=== PATIENT | male | born 1960 | race American Indian/Alaskan Native ===

== ENCOUNTER 2016-09-25 19:41 | Inpatient (IN) | payer MEDICAID ==
[2016-09-25 20:09] VITALS: O2SAT 100
--- NOTE | 2016-09-25 20:12 | C.PDOC ---
History Of Present Illness 56 year old male was brought to the ED as a transfer from [facility] in [place] where he was medically cleared to be admitted at [facility] by Dr. Velez for depression and suicidal ideations. Time Seen by Provider: 09/25/16 19:50 Chief Complaint (Nursing): Psychiatric Evaluation History Per: Patient History/Exam Limitations: no limitations Associated Symptoms: Depression, Suicidal Thoughts Recent travel outside of the [place]: No Additional History Per: Other ([facility] in [place]) Past Medical History Reviewed: Historical Data, Nursing Documentation, Vital Signs Vital Signs: Last Vital Signs Temp 98.1 F 09/25/16 20:01 Pulse 61 09/25/16 20:01 Resp 18 09/25/16 20:47 BP 151/94 H 09/25/16 20:01 Pulse Ox 100 09/25/16 20:14 - Medical History PMH: Anxiety, Bipolar Disorder, Depression - [facility] Procedures GROUP PSYCHOTHERAPY (05/13/16) INDIV PSYCHOTHERAPY FOR SUBSTANCE ABUSE TREATMENT, SUPPORT (05/13/16) INDIVIDUAL PSYCHOTHERAPY, SUPPORTIVE (05/13/16) MEDICATION MANAGEMENT (05/13/16) MEDS MGMT FOR SUBSTANCE ABUSE TREATMENT, OTH REPL MED (05/13/16) Family History: States: No Known Family Hx - Social History Hx Tobacco Use: No Hx Alcohol Use: No Hx Substance Use: Yes - Immunization History Hx Influenza Vaccination: Yes Hx Pneumococcal Vaccination: Yes Review Of Systems Constitutional: Negative for: Fever, Chills, Sweats Eyes: Negative for: Vision Change Cardiovascular: Negative for: Chest Pain, Palpitations Respiratory: Negative for: Cough, Shortness of Breath Gastrointestinal: Negative for: Nausea, Vomiting, Abdominal Pain, Diarrhea Psych: Positive for: Depression, Suicidal ideation Physical Exam - Physical Exam Appears: Non-toxic, No Acute Distress Skin: Warm, Dry Head: Atraumatic Eye(s): bilateral: Normal Inspection Oral Mucosa: Moist Neck: Normal ROM, Supple Chest: Symmetrical, No Deformity Cardiovascular: Rhythm Regular Respiratory: No Rales, No Rhonchi, No Stridor, No Wheezing Gastrointestinal/Abdominal: Soft, No Tenderness, No Distention, No Guarding, No Rebound Extremity: Normal ROM, No Tenderness Neurological/Psych: Oriented x3 ED Course And Treatment O2 Sat by Pulse Oximetry: 100 Disposition - Disposition Disposition: HOSPITALIZED Disposition Time: 20:52 Condition: STABLE - Clinical Impression Clinical Impression: Moderate major depression, single episode, Suicidal ideation - Scribe Statement The provider has reviewed the documentation as recorded by the Scribkane Hinton All medical record entries made by the Mariumibe were at my direction and personally dictated by me. I have reviewed the chart and agree that the record accurately reflects my personal performance of the history, physical exam, medical decision making, and the department course for this patient. I have also personally directed, reviewed, and agree with the discharge instructions and disposition.
--- NOTE | 2016-09-27 04:39 | PCM.PSYCH ---
Initial Psychiatric Evaluation - Initial Psychiatric Evaluation Legal Status: Capacity Chief Complaint (in patient's own words): I wanted to overdose Patient's Reaction to Hospitalization: I feel safe here in the hospital and i will not hurt myself while here. I contracted for safety History of Present Illness and Precipitating Events: Pt is a 56 year old homeless, single, unemployed male who suffers from bipolar disorder. Pt uses cocaine occasionally and used last last year. He drinks socially. He denies use of other substances. Pt states he started going to [facility] age 36. He has been many times at [facility] in [place] and before at [facility], He is usually admitted for depression, anxiety and suicidal ideation. He feels hopeless and helpless. He is anhedonic, has aenergy and amotivation. Pt was transferred from [facility]. Pt has no history. He has been arrested for loitering and shop lifting. Pt gas 5 children by different women. All the minor children are safe with their mothers. Both parents are . He has 2 brother and 1 sister. He is the youngest. There is no family history of substance abuse or mental illness, He graduated 12th grade. 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 He receives SSI. 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 Current Medications: Active Medications Generic Name Dose Route Start Last Admin Trade Name Freq PRN Reason Stop Dose Admin Clonazepam 0.5 mg 09/26/16 14:00 09/26/16 17:53 Klonopin PO 0.5 mg TID ALEXA Administration Escitalopram Oxalate 20 mg 09/27/16 10:00 Lexapro PO DAILY ALEXA Gabapentin 300 mg 09/26/16 10:00 09/26/16 17:53 Neurontin PO 300 mg TID ALEXA Administration Pneumococcal Polyvalent Vaccine 0.5 ml 09/28/16 10:00 Pneumovax 23 Vaccine IM 09/28/16 10:01 .ONCE ONE Trazodone HCl 100 mg 09/25/16 23:14 09/26/16 21:39 Desyrel PO 100 mg HS PRN Administration Insomnia Past Psychiatric History - Past Psychiatric History Prior Professional Help: SeeHPI Pertinent Medical Hx (Current Medical&Sleep Prob, Allergies): Allergies Allergy/AdvReac Type Severity Reaction Status Date / Time No Known Allergies Allergy Verified 05/13/16 01:15 Escitalopram [Lexapro] 20 mg PO DAILY 05/13/16 traZODone [trazodone Hydrochloride] 200 mg PO DAILY 05/13/16 Sertraline [Zoloft] 100 mg PO DAILY #30 tab 05/20/16 traZODone [Desyrel] 100 mg PO HS #30 tab 05/20/16 Review of Systems - Constitutional Constitutional: Malaise - EENT Eyes: UNREMARKABLE Ears: UNREMARKABLE Nose/Mouth/Throat: UNREMARKABLE - Cardiovascular Cardiovascular: UNREMARKABLE - Respiratory Respiratory: UNREMARKABLE - Gastrointestinal Gastrointestinal: UNREMARKABLE - Genitourinary Genitourinary: UNREMARKABLE - Reproductive: Male Reproductive:Male: UNREMARKABLE - Musculoskeletal Musculoskeletal: UNREMARKABLE - Integumentary Integumentary: UNREMARKABLE - Neurological Neurological: UNREMARKABLE - Psychiatric Psychiatric: Anhedonia, Anxiety, Behavioral Changes, Depression, Difficulty Concentrating, Hopelessness, Suicidal Ideation - Endocrine Endocrine: UNREMARKABLE - Hematologic/Lymphatic Hematologic: UNREMARKABLE Mental Status Examination - Personal Presentation Personal Presentation: Looks older than stated age - Affect Affect: Constricted - Motor Activity Motor Activity: Calm - Reliability in Providing Information Reliability in Providing Information: Good - Speech Speech: Organized, Relevant, Coherent - Mood Mood: Depressed, Anxious - Formal Thought Process Formal Thought Process: No Impairment - Obsessions/Compulsions Obsessions: No Compulsions: No - Cognitive Functions Orientation: Person, Place, Situation, Time Sensorium: Alert Attention/Concentration: Attentive Abstract Thinking: As evidence by literal perception of proverbs Judgement: Intact, as evidence by: Good judgement, Intact, as evidence by: Other Memory: Recent intact, as evidence by: Ability to recall events of the day, Remote intact, as evidenced by: Ability to recall historical events - Risk Risk: Suicidal - Strength & Assets Inventory Strength & Assets Inventory: Family support, Employment history - Limitations Limitations: Living alone DSM 5 DX - DSM 5 DSM 5 Diagnosis: Bipolar disorder MRE depressed severe without psychotic features- Lexappro Trazodone Klonopin group milieu and recreational therapy supportive psychotherapy - Recommended/Plan of Treatment Treatment Recommendations and Plan of Treatment: Bipolar disorder MRE depresssed severe without psychotic features Projected ELOS: 10 days Prognosis: fair Discharge Plan and Discharge Criteria: no longer suicidal - Smoking Cessation Smoking Cessation Initiated: No
--- NOTE | 2016-09-27 10:00 | PCM.PYCHPN ---
Psychiatric Progress Note - Psychiatric Progress Note Patient seen today, length of contact: 15 min Patient Chief Complaint: I am still feeling depressed. Problems Identified/Issues Discussed: Patient seen and evaluated, chart reviewed and discussed with the nurse. Patient remained isolated, confined and withdrawn. He reports depressed mood and feelings of hopelessness and helplessness. He also reports irritability, agitation and poor sleep. He is taking medication and denied any side effects. Supportive therapy and psychoeducation were given. Medication Change: No Medical Record Reviewed: Yes Mental Status Examination - Cognitive Function Orientation: Person, Place, Situation, Time Memory: Intact Attention: WNL Concentration: Poor Association: WNL Fund of Knowledge: Poor - Mood Mood: Depressed, Anxious - Affect Affect: Constricted - Speech Speech: Soft - Formal Thought Process Formal Thought Process: No Impairment - Suicidal Ideation Suicidal Ideation: No - Homicidal Ideation Homicidal Ideation: No Goal/Treatment Plan - Goal/Treatment Plan Need for Continued Stay: Discharge may exacerbated symptoms, Severe functional impairment Progress Toward Problem(s) and Goals/Treatment Plan: Bipolar disorder MRE depressed severe without psychotic features CBT group milieu and recreational therapy supportive psychotherapy Lexapro 20 ng Trazodone 50 mg PO QHS Klonopin 0.5 mg PO TID Gabapentin 300 mg PO TID - Smoking Cessation Smoking Cessation Initiated: No
[2016-09-28 08:11] VITALS: RESP 20
[2016-09-28] MEDS ORDERED: Pneumococcal 23-Valent Vaccine IM ONE (10:00)
--- NOTE | 2016-09-28 12:50 | PCM.PYCHPN ---
Psychiatric Progress Note - Psychiatric Progress Note Patient seen today, length of contact: 15 min Patient Chief Complaint: I am feeling lil better. Problems Identified/Issues Discussed: Patient seen and evaluated, chart reviewed and discussed with the nurse. as per staff patient has started coming out of his room and started attending groups and meetings. He still reports depressed mood and at times feelings of hopelessness and helplessness. However he remained calm and cooperative. He is taking medication and denied any side effects. Supportive therapy and psychoeducation were given. Medication Change: Yes (atarax) Medical Record Reviewed: Yes Mental Status Examination - Cognitive Function Orientation: Person, Place, Situation, Time Memory: Intact Attention: WNL Concentration: Poor Association: WNL Fund of Knowledge: Poor - Mood Mood: Depressed, Anxious - Affect Affect: Constricted - Speech Speech: Soft - Formal Thought Process Formal Thought Process: No Impairment - Suicidal Ideation Suicidal Ideation: No - Homicidal Ideation Homicidal Ideation: No Goal/Treatment Plan - Goal/Treatment Plan Need for Continued Stay: Discharge may exacerbated symptoms, Severe functional impairment Progress Toward Problem(s) and Goals/Treatment Plan: Bipolar disorder MRE depressed severe without psychotic features CBT group milieu and recreational therapy supportive psychotherapy Lexapro 20 ng Trazodone 50 mg PO QHS Klonopin 0.5 mg PO TID Gabapentin 300 mg PO TID Atarax 25 mg by mouth every 6 hours when necessary anxiety - Smoking Cessation Smoking Cessation Initiated: No
--- NOTE | 2016-09-29 14:34 | PCM.PYCHPN ---
Psychiatric Progress Note - Psychiatric Progress Note Patient seen today, length of contact: 15 min Patient Chief Complaint: I'm feeling much better' Problems Identified/Issues Discussed: Patient seen and evaluated, chart reviewed and discussed with the nurse. Patient reports improvement in his mood and reports improvement in his anxiety. He is trying to go to inpatient rehabilitation and he is calling up different programs. He is attending groups and meetings and remained calm and cooperative. He is taking medication and denied any side effects. Supportive therapy and psychoeducation were given. Medication Change: No Medical Record Reviewed: Yes Mental Status Examination - Cognitive Function Orientation: Person, Place, Situation, Time Memory: Intact Attention: WNL Concentration: WNL Association: WNL Fund of Knowledge: Poor - Mood Mood: Depressed, Anxious - Affect Affect: Constricted, Depressed - Speech Speech: Soft - Formal Thought Process Formal Thought Process: No Impairment - Suicidal Ideation Suicidal Ideation: No - Homicidal Ideation Homicidal Ideation: No Goal/Treatment Plan - Goal/Treatment Plan Need for Continued Stay: Discharge may exacerbated symptoms, Severe functional impairment Progress Toward Problem(s) and Goals/Treatment Plan: Bipolar disorder MRE depressed severe without psychotic features CBT group milieu and recreational therapy supportive psychotherapy Lexapro 20 ng Trazodone 50 mg PO QHS Klonopin 0.5 mg PO TID Gabapentin 300 mg PO TID - Smoking Cessation Smoking Cessation Initiated: No
[2016-09-30 09:30] VITALS: BP 123/79; PULSE 85; TEMP 97.4
--- NOTE | 2016-09-30 10:02 | PCM.PYCHDC ---
Mental Status Examination - Mental Status Examination Orientation: Person, Place, Situation, Time Memory: Intact Mood: Neutral Affect: Constricted Speech: Soft Attention: WNL Concentration: WNL Association: WNL Fund of Knowledge: WNL Formal Thought Process: No Impairment Description of patient's judgement and insight: good, fair Psychotic Thoughts and Behaviors: denies any AVH Suicidal Ideation: No Current Homicidal Ideation?: No Discharge Summary - Discharge Note Reason for Hospitalization: Pt is a 56 year old homeless, single, unemployed male who suffers from bipolar disorder. Pt uses cocaine occasionally and used last last year. He drinks socially. He denies use of other substances. Pt states he started going to [facility] age 36. He has been many times at [facility] in [place] and before at [facility], He is usually admitted for depression, anxiety and suicidal ideation. He feels hopeless and helpless. He is anhedonic, has aenergy and amotivation. Pt was transferred from [facility]. Pt has no history. He has been arrested for loitering and shop lifting. Pt gas 5 children by different women. All the minor children are safe with their mothers. Both parents are . He has 2 brother and 1 sister. He is the youngest. There is no family history of substance abuse or mental illness, He graduated 12th grade. 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 He receives SSI. 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 Consultations:: List each consultation separately and include: 1. Reason for request. 2. Findings. 3. Follow-up Summary of Hospital Course include:: 1. Description of specific treatment plan utilized for patients during their course of treatmen. 2. Summarize the time- course for resolution of acute symptoms and/or regressed behaviors. 3. Describe issues identified and worked on during hospitalization. 4. Describe medication utilized. 5. Describe medical problems identified and treated. 6. Reassessment of suicide risk Summary of Hospital Course: During the course of his stay, patient (pt) started progressively improving and he no longer remained irritable, depressed, and suicidal. His mood was improved and he started attending groups and meetings and started socializing. Patient denied any feelings of hopelessness, helplessness, and worthlessness, denied any problem with the sleep or appetite, denied suicidal ideation or homicidal ideation. Pt denied any auditory or visual hallucinations. Some changes were made in his current medications and patient was discharged on following medications. He tolerated these medications very well and denied any side effects. - Final Diagnosis (DSM 5) Condition upon Discharge: STABLE DSM 5: Bipolar disorder MRE depressed severe without psychotic features Disposition: HOME/ ROUTINE Follow-up Treatment Plan: Education: Pt was educated and counseled about the risks and benefits of taking and not taking medications. Pt was educated and counseled about the risks of drinking and abusing drugs. Pt was educated and counseled to go to the ER or call 911 if pt develop suicidal ideation or homicidal ideation, worsening of symptoms or severe side effects of the meds. Prescriptions/Medication Reconciliation: Escitalopram [Lexapro] 20 mg PO DAILY #30 tab traZODone [Desyrel] 100 mg PO HS PRN #30 tab PRN Reason: Insomnia - Smoking Cessation Smoking Cessation Medication prescribed: No - Antipsychotic Medications Pt discharged on 2 or more routine antipsychotic medications: No
== END 2016-09-30 13:00 | disposition home or self-care (01) | DRG 430 ==
LOC: C.ER 19:41 → C.5E 19:54
PROVIDERS: ADMIT Psychiatry & Neurology Psychiatry; ATTEND Psychiatry & Neurology Psychiatry
PROC: GZHZZZZ Group Psychotherapy (ICD-10-PCS; principal; 2016-09-25)
PROC: GZ58ZZZ Individual Psychotherapy, Cognitive-Behavioral (ICD-10-PCS; 2016-09-25)
PROC: GZ56ZZZ Individual Psychotherapy, Supportive (ICD-10-PCS; 2016-09-25)
DX: F31.4 Bipolar disorder, current episode depressed, severe, without psychotic features (principal); R45.851 Suicidal ideations; F41.9 Anxiety disorder, unspecified; Z59.0 Homelessness

== ENCOUNTER 2018-02-17 02:03 | Inpatient (IN) | payer MEDICAID ==
--- NOTE | 2018-02-17 02:24 | C.PDOC ---
History Of Present Illness Presents to the ED for medical clearance after being transferred from [facility]. The patient was accepted for transfer by Dr. Rae for major depression. Time Seen by Provider: 02/17/18 02:24 Chief Complaint (Nursing): Psychiatric Evaluation History Per: Patient History/Exam Limitations: no limitations Onset/Duration Of Symptoms: Hrs Current Symptoms Are (Timing): Still Present Suicide/Self Injury Attempted (Context): None Modifying Factor(s): None Associated Symptoms: Depression Recent travel outside of the [facility]: No Additional History Per: EMS Past Medical History Reviewed: Historical Data, Nursing Documentation, Vital Signs Vital Signs: Last Vital Signs Temp 98 F 02/17/18 02:09 Pulse 58 L 02/17/18 02:09 Resp 20 02/17/18 02:09 BP 150/73 02/17/18 02:09 Pulse Ox 100 02/17/18 02:09 - Medical History PMH: Anxiety, Bipolar Disorder, Depression Denies: Chronic Kidney Disease Other Surgeries: Cerebral and subdural hematoma - [facility] Procedures GROUP PSYCHOTHERAPY (09/25/16) INDIV PSYCHOTHERAPY FOR SUBSTANCE ABUSE TREATMENT, SUPPORT (05/13/16) INDIVIDUAL PSYCHOTHERAPY, COGNITIVE-BEHAVIORAL (09/25/16) INDIVIDUAL PSYCHOTHERAPY, SUPPORTIVE (09/25/16) MEDICATION MANAGEMENT (05/13/16) MEDS MGMT FOR SUBSTANCE ABUSE TREATMENT, OTH REPL MED (05/13/16) Family History: States: Unknown Family Hx - Social History Hx Tobacco Use: No Hx Alcohol Use: Yes Hx Substance Use: Yes - Immunization History Hx Influenza Vaccination: Yes Hx Pneumococcal Vaccination: Yes Review Of Systems Constitutional: Negative for: Fever, Chills Neurological: Negative for: Altered Mental Status Psych: Positive for: Depression Physical Exam - Physical Exam Appears: Non-toxic, No Acute Distress Skin: Warm, Dry Head: Normacephalic Eye(s): bilateral: Normal Inspection Oral Mucosa: Moist Neck: Trachea Midline, Supple Chest: Symmetrical Cardiovascular: Rhythm Regular Respiratory: No Rales, No Rhonchi, No Wheezing Gastrointestinal/Abdominal: Soft, No Tenderness, No Distention Extremity: Bilateral: Normal Color And Temperature Pulses: Left Dorsalis Pedis: Normal, Right Dorsalis Pedis: Normal Neurological/Psych: Oriented x3 Gait: Steady ED Course And Treatment O2 Sat by Pulse Oximetry: 100 (RA) Pulse Ox Interpretation: Normal Progress Note: Accepted for transfer by Dr. Rae Disposition Discussed With .: Kevin Rae Comment: accetped the pt on his service and took over the care at 2:26 AM Doctor Will See Patient In The: Hospital Counseled Patient/Family Regarding: Studies Performed, Diagnosis - Disposition Disposition: HOSPITALIZED Disposition Time: 02:24 Condition: FAIR Forms: [facility] (Cook Islander) - POA Present On Arrival: None - Clinical Impression Clinical Impression: Major depression - PA / SENIOR CONTROLLER / Resident Statement MD/DO has reviewed & agrees with the documentation as recorded. - Scribe Statement The provider has reviewed the documentation as recorded by the Scribe (Cira Grubbs) Provider Attestation: All medical record entries made by the Scribe were at my direction and personally dictated by me. I have reviewed the chart and agree that the record accurately reflects my personal performance of the history, physical exam, medical decision making, and the department course for this patient. I have also personally directed, reviewed, and agree with the discharge instructions and disposition. Decision To Admit - Pt Status Changed To: Hospital Disposition Of: Inpatient - Admit Certification Admit to Inpatient:: After my assessment, the patient will require hospitalization for at least two midnights. This is because of the severity of symptoms shown, intensity of services needed, and/or the medical risk in this patient being treated as an outpatient. - InPatient: Physician Admission Certification: I certify that this patient requires 2 or more midnights of care for the following reason:: After my assessment, the patient will require hospitalization for at least two midnights. This is because of the severity of symptoms shown, intensity of services needed, and/or the medical risk in this patient being treated as an outpatient. - . Bed Request Type: Psychiatry Admitting Physician: Kevin Rae Patient Diagnosis: Major depression
--- NOTE | 2018-02-17 03:06 | PCM.BM ---
<WatsonCandice cooper - Last Filed: 02/17/18 03:03> Treatment Plan Problems - Problems identified on initial assessmt Depression Date Initiated: 02/17/18 (pt has been depressed for 2 days ) Time Initiated: 03:03 Assessment reference: NA Status: Active suicidal ideations Date Initiated: 02/17/18 (suicidal ideations with plan to cut wrist ) Time Initiated: 03:04 Assessment reference: NA Status: Active substance abuse Date Initiated: 02/17/18 (pt uses cocaine, heroin, etoh daily) Time Initiated: 03:05 Assessment reference: NA Status: Active Treatment assets and liabiliti Patient Assests: adapts well, cooperative, ADL independent, physically healthy, negotiates basic needs Patient Liabilities: live alone, financial problems, substance abuse - Milieu Protocol Maintain good personal hygiene: daily Encourage regular showers, every shift Remind patient to perform daily oral care, every shift Assist patient to perform ADL's Conduct patient checks and document Observation sheet: Q15 minutes Maintain personal safety: every shift Educate patient to report safety concerns to staff, every shift Monitor environment for contraband/sharps Medication safety: Monitor for expected outcome, potential side effects: every shift, Assess barriers to learning: every shift, Assess readiness for medication education: every shift <Oliva Marquez - Last Filed: 02/22/18 16:47> Family Contact Family involvement: Patient does not wish Family/SO involvement Family contact: Patient declines to allow family contact at present - Goals for Treatment Patient goals for treatment: "I want to go to [facility]." Discharge/Continuing Care - Education Needs Education Needs: Patient Medication, Patient Diagnosis/Disease Process, Patient Coping Skills, Patient Placement options, Patient Community resources - Discharge Discharge Criteria: Free of Suicidal thoughts, Normal sleep pattern, Ability to care for self, No longer exhibiting s/s of withdrawal, Reduction of target symptoms Discharge to:: Substance Abuse Rehab - Treatment Team Participation Discussed with Family/SO: No Was Patient/Family/SO present at Treatment Team Meeting: Yes
--- NOTE | 2018-02-17 19:14 | PCM.PSYCH ---
Initial Psychiatric Evaluation - Initial Psychiatric Evaluation Type of Admission: Voluntary Legal Status: Capacity Chief Complaint (in patient's own words): I was depressed and had suicidal ideations with plan to overdose with pills. History of Present Illness and Precipitating Events: Patient is a 57 years old, single, unemployed, homeless, male with a history of bipolar disorder for last 6 years, depression, noncompliant on treatment for last few days was admitted due to worsening of depression and suicidal ideations with plan to overdose on trazodone. Patient reported feeling depressed for last few days, noncompliant on medications. According to patient he was taking Lexapro 20 mg and trazodone 200 mg daily. Started having suicidal ideations with plan to overdose on trazodone. Patient went to ER at [facility] but was discharged. Patient went back next day with the same problems and was subsequently referred to [facility]. Denied any problem with sleep or appetite. History of 1 suicidal ideations 2 years ago by overdose on Lexapro, was admitted for 2 weeks in [facility]. Feeling hopeless and helpless. Patient has history of 15 inpatient psychiatric admissions. Last admission was 2 months ago at [facility]. Denied any manic, anxiety or psychotic features. Cocaine: Started at 21 years of age, increase gradually. Currently he was using 2-3 bags of cocaine daily. Last use 5 days ago, smoking. Opioids: Started using heroin 5 years ago, sniffing, 3 bags daily. Last use reported 5 days ago. Alcohol: Started 20 years ago, was drinking 2 cans of beer each of 24 ounces daily. Last drink 4 days ago. Does not smoke cigarettes. Patient has history of incarceration for about 3 months for not paying fines. He was born in [place], has 12 grade of education, not working for last 6 years. On disability. Never and has 5 grownup children. Currently he is homeless. His height is 5 feet 9 inches and weight is 160 pounds. Current Medications: Active Medications Generic Name Dose Route Start Last Admin Trade Name Freq PRN Reason Stop Dose Admin Influenza Virus Vaccine 60 mcg 02/20/18 03:19 Fluzone Quad [id number] IM 02/20/18 03:20 .ONCE ONE Pneumococcal Polyvalent Vaccine 0.5 ml 02/20/18 03:21 Pneumovax 23 Vaccine IM 02/20/18 03:22 .ONCE ONE Past Psychiatric History - Past Psychiatric History Previous Treatment History: Inpatient At [facility]: [facility], [facility] History of Abuse: None reported History of ETOH/Drug Use: See HPI History of Family Illness: None reported Pertinent Medical Hx (Current Medical&Sleep Prob, Allergies): Allergies Allergy/AdvReac Type Severity Reaction Status Date / Time No Known Allergies Allergy Verified 05/13/16 01:15 Escitalopram [Lexapro] 20 mg PO DAILY 05/13/16 traZODone [trazodone Hydrochloride] 200 mg PO DAILY 05/13/16 Sertraline [Zoloft] 100 mg PO DAILY #30 tab 05/20/16 traZODone [Desyrel] 100 mg PO HS #30 tab 05/20/16 Escitalopram [Lexapro] 20 mg PO DAILY #30 tab 09/30/16 traZODone [Desyrel] 100 mg PO HS PRN #30 tab 09/30/16 Review of Systems - Psychiatric Psychiatric: As Per HPI, Depression, Hopelessness Mental Status Examination - Personal Presentation Personal Presentation: Looks stated age - Affect Affect: Depressed - Motor Activity Motor Activity: Calm - Reliability in Providing Information Reliability in Providing Information: Fair - Speech Speech: Organized - Mood Mood: Depressed - Formal Thought Process Formal Thought Process: No Impairment - Hallucinations/Delusions Hallucinations: Other (None reported) Delusions: Other - Obsessions/Compulsions Obsessions: None Compulsions: None - Cognitive Functions Orientation: Person, Place, Situation, Time Sensorium: Alert Attention/Concentration: Attentive Abstract Thinking: [place] Estimate of Intelligence: Average Judgement: Intact, as evidence by: Insight regarding need for hospitalization Memory: Recent intact, as evidence by: Ability to recall events of the day, Remote intact, as evidenced by: Ability to recall historical events - Risk Risk: Withdrawal, Diminished functioning - Strength & Assets Inventory Strength & Assets Inventory: Cooperative - Limitations Limitations: Other (Homeless) DSM 5 DX - DSM 5 DSM 5 Diagnosis: Major depressive disorder recurrent severe without psychotic features. Cocaine use disorder severe. Opioid use disorder severe. Alcohol use disorder severe - Recommended/Plan of Treatment Treatment Recommendations and Plan of Treatment: Patient/staff education. Supportive therapy. CBT for relapse prevention. [place] for opinions. We will start Librium as needed for alcohol withdrawal symptoms. We will start Lexapro and taper. Other as needed medications. Patient wants to go to a boarding home. Projected ELOS: 8-10 days - Smoking Cessation Smoking Cessation Initiated: No Reason for not providing: Patient does not smoke cigarettes.
[2018-02-20] MEDS ORDERED: Influenza Vaccine 60 MCG/0.5 ML SYR (3 yr & up) IM ONE ×2 (03:19→10:00)
[2018-02-20] MEDS ORDERED: Pneumococcal 23-Valent Vaccine IM ONE ×2 (03:21→10:30)
--- NOTE | 2018-02-20 05:33 | PCM.PYCHPN ---
Psychiatric Progress Note - Psychiatric Progress Note Patient seen today, length of contact: 15 MIN Patient Chief Complaint: I SLEEPING OK BUT STILL HAVE THOUGHTS OF SI AT TIMES BUT NOT NOW Problems Identified/Issues Discussed: PT SEEN AND\EXAMINED D/W TEAM/W PT HOW DEPRESSION CAN MAKE PROBLEMS INSURMOUNTABLE Medical Problems: NOTHING ACUTE Diagnostic Results: REVIEWED DSM 5 Symptoms Update: LESS HELPLESS Medication Change: No Medical Record Reviewed: Yes Mental Status Examination - Cognitive Function Orientation: Place, Situation, Time Memory: Intact Attention: WNL Concentration: WNL - Mood Mood: Depressed, Anxious - Affect Affect: Constricted - Speech Speech: Appropriate - Formal Thought Process Formal Thought Process: No Impairment - Suicidal Ideation Suicidal Ideation: No - Homicidal Ideation Homicidal Ideation: No Goal/Treatment Plan - Goal/Treatment Plan Need for Continued Stay: Discharge may exacerbated symptoms Progress Toward Problem(s) and Goals/Treatment Plan: MDD: [place] CBT SUPPORTIVE PSYCHOTHERAPY GROUP [facility] AND RECREATIONAL THERAPY COCAINE USE DISORDER: [place] CBT Estimated Date of D/C: 02/27/18 - Smoking Cessation Smoking Cessation Initiated: No
--- NOTE | 2018-02-20 05:42 | PCM.PYCHPN ---
Psychiatric Progress Note - Psychiatric Progress Note Patient seen today, length of contact: 15 MIN Patient Chief Complaint: I AM STARTING TO FEEL MORE HOPEFUL Problems Identified/Issues Discussed: PT SEEN AND EXAMINED D/W TEAM D/W PT SIDE EFFECTS OF ANTIDEPRESSANTS Medical Problems: NOTHING ACUTE Diagnostic Results: REVIEWED Medication Change: No Medical Record Reviewed: Yes Mental Status Examination - Cognitive Function Orientation: Place, Situation, Time Memory: Intact Attention: WNL Association: WNL Fund of Knowledge: WNL - Mood Mood: Depressed, Anxious - Affect Affect: Constricted - Speech Speech: Appropriate - Formal Thought Process Formal Thought Process: No Impairment - Suicidal Ideation Suicidal Ideation: No - Homicidal Ideation Homicidal Ideation: No Goal/Treatment Plan - Goal/Treatment Plan Need for Continued Stay: Remain at risks for inpatient hospitalization, Discharge may exacerbated symptoms Progress Toward Problem(s) and Goals/Treatment Plan: MDD: [place] CBT SUPPORTIVE PSYCHOTHERAPY COCAINE USE DISORDER: [place] CBT SUPPORTIVE PSYCHOTHERAPY PSYCHOEDUCATION Estimated Date of D/C: 02/27/18 - Smoking Cessation Smoking Cessation Initiated: No
--- NOTE | 2018-02-20 22:54 | PCM.PYCHPN ---
Psychiatric Progress Note - Psychiatric Progress Note Patient seen today, length of contact: 15 MIN Patient Chief Complaint: I was not feeling good.' Problems Identified/Issues Discussed: Patient seen and evaluated, chart reviewed and discussed with the nurse. Pt reports depressed mood, and reports feelings of hopelessness and helplessness. He still reports irritability and agitation. He remained isolated and withdrawn, and confined to his room. He reports auditory hallucinations, but denies any visual hallucinations, or any paranoia. Patient is compliant with medications and denies any side effects. Symptoms are improving but pt needs more time to stabilize. Support and psychoeducation given. Medication Change: No Medical Record Reviewed: Yes Mental Status Examination - Cognitive Function Orientation: Place, Situation, Time Memory: Intact Attention: WNL Association: WNL Fund of Knowledge: Poor - Mood Mood: Depressed, Anxious - Affect Affect: Constricted - Speech Speech: Appropriate - Formal Thought Process Formal Thought Process: No Impairment - Suicidal Ideation Suicidal Ideation: No - Homicidal Ideation Homicidal Ideation: No Goal/Treatment Plan - Goal/Treatment Plan Need for Continued Stay: Remain at risks for inpatient hospitalization, Discharge may exacerbated symptoms Progress Toward Problem(s) and Goals/Treatment Plan: Major Depressive disorder recurrent severe without psychotic features Alcohol use disorder severe Opioid use disorder severe Opioid withdrawal Cocaine use disorder severe -CBT -Psychotherapy -Supportive therapy, group therapy, individual therapy -Atarax 25 mg PO Q6 prn -Abilify 2 mg PO QDaily -Trazodone 200 mg PO QHS prn -Lexapro 20 mg PO Q Daily Estimated Date of D/C: 02/27/18
--- NOTE | 2018-02-21 23:17 | PCM.PYCHPN ---
Psychiatric Progress Note - Psychiatric Progress Note Patient seen today, length of contact: 15 MIN Patient Chief Complaint: I am feeling little better.' Problems Identified/Issues Discussed: Patient seen and evaluated, chart reviewed and discussed with the nurse. Patient reports some improvement in the depressed mood and some improvement in the feelings of hopelessness and helplessness. As per the staff patient remained isolated and withdrawn. Patient also reports improvement in the withdrawal symptoms. He is taking the medications and denies any side effects. Symptoms are improving and he needs more time for stabilization Supportive therapy and psychoeducation were given. Medication Change: No Medical Record Reviewed: Yes Mental Status Examination - Cognitive Function Orientation: Person, Place, Situation, Time Memory: Intact Attention: WNL Concentration: Poor Association: WNL Fund of Knowledge: Poor - Mood Mood: Depressed, Anxious - Affect Affect: Depressed - Speech Speech: Appropriate - Formal Thought Process Formal Thought Process: No Impairment - Suicidal Ideation Suicidal Ideation: No - Homicidal Ideation Homicidal Ideation: No Goal/Treatment Plan - Goal/Treatment Plan Need for Continued Stay: Remain at risks for inpatient hospitalization, Discharge may exacerbated symptoms Progress Toward Problem(s) and Goals/Treatment Plan: Major Depressive disorder recurrent severe without psychotic features Alcohol use disorder severe Opioid use disorder severe Opioid withdrawal Cocaine use disorder severe -CBT -Psychotherapy -Supportive therapy, group therapy, individual therapy -Atarax 25 mg PO Q6 prn -Abilify 2 mg PO QDaily -Trazodone 200 mg PO QHS prn -Lexapro 20 mg PO Q Daily Estimated Date of D/C: 02/27/18 - Smoking Cessation Smoking Cessation Initiated: No
--- NOTE | 2018-02-23 12:57 | PCM.PYCHPN ---
Psychiatric Progress Note - Psychiatric Progress Note Patient seen today, length of contact: 15 MIN Patient Chief Complaint: "So so" Problems Identified/Issues Discussed: The pt is seen, chart reviewed, case discussed with staff. The pt is compliant with medications and reports no side-effects. Symptoms are improving but needs more time to stabilize. Pt attends groups and activities. Support given, psycho-education provided. After care discussed. Medication Change: No Medical Record Reviewed: Yes Mental Status Examination - Cognitive Function Orientation: Person, Place, Situation, Time Memory: Intact Attention: WNL Concentration: Poor Association: WNL Fund of Knowledge: Poor - Mood Mood: Depressed, Anxious - Affect Affect: Depressed - Speech Speech: Appropriate - Formal Thought Process Formal Thought Process: No Impairment - Suicidal Ideation Suicidal Ideation: No - Homicidal Ideation Homicidal Ideation: No Goal/Treatment Plan - Goal/Treatment Plan Need for Continued Stay: Discharge may exacerbated symptoms, Severe functional impairment Progress Toward Problem(s) and Goals/Treatment Plan: Continue medications Support and psychoeducation daily Attend groups and activities daily After care planning by SARAH Estimated Date of D/C: 02/27/18
--- NOTE | 2018-02-24 10:00 | PCM.PYCHDC ---
Mental Status Examination - Mental Status Examination Orientation: Person, Place, Situation, Time Memory: Intact Mood: Neutral Affect: Constricted Speech: Soft Attention: WNL Concentration: WNL Association: WNL Fund of Knowledge: WNL Formal Thought Process: No Impairment Description of patient's judgement and insight: good, fair Psychotic Thoughts and Behaviors: denies any AVH Suicidal Ideation: No Current Homicidal Ideation?: No Discharge Summary - Discharge Note Reason for Hospitalization: Patient is a 57 years old, single, unemployed, homeless, male with a history of bipolar disorder for last 6 years, depression, noncompliant on treatment for last few days was admitted due to worsening of depression and suicidal ideations with plan to overdose on trazodone. Patient reported feeling depressed for last few days, noncompliant on medications. According to patient he was taking Lexapro 20 mg and trazodone 200 mg daily. Started having suicidal ideations with plan to overdose on trazodone. Patient went to ER at [facility] but was discharged. Patient went back next day with the same problems and was subsequently referred to [facility]. Denied any problem with sleep or appetite. History of 1 suicidal ideations 2 years ago by overdose on Lexapro, was admitted for 2 weeks in [facility]. Feeling hopeless and helpless. Patient has history of 15 inpatient psychiatric admissions. Last admission was 2 months ago at [facility] Denied any manic, anxiety or psychotic features. Cocaine: Started at 21 years of age, increase gradually. Currently he was using 2-3 bags of cocaine daily. Last use 5 days ago, smoking. Opioids: Started using heroin 5 years ago, sniffing, 3 bags daily. Last use reported 5 days ago. Alcohol: Started 20 years ago, was drinking 2 cans of beer each of 24 ounces daily. Last drink 4 days ago. Does not smoke cigarettes. Patient has history of incarceration for about 3 months for not paying fines. He was born in [place], has 12 grade of education, not working for last 6 years. On disability. Never and has 5 grownup children. Currently he is homeless. His height is 5 feet 9 inches and weight is 160 pounds. Consultations:: List each consultation separately and include: 1. Reason for request. 2. Findings. 3. Follow-up Summary of Hospital Course include:: 1. Description of specific treatment plan utilized for patients during their course of treatmen. 2. Summarize the time- course for resolution of acute symptoms and/or regressed behaviors. 3. Describe issues identified and worked on during hospitalization. 4. Describe medication utilized. 5. Describe medical problems identified and treated. 6. Reassessment of suicide risk - Final Diagnosis (DSM 5) Condition upon Discharge: FAIR DSM 5: Major depressive disorder recurrent severe without psychotic features. Cocaine use disorder severe. Opioid use disorder severe. Alcohol use disorder severe Disposition: HOME/ ROUTINE Follow-up Treatment Plan: Major Depressive disorder recurrent severe without psychotic features Alcohol use disorder severe Opioid use disorder severe Opioid withdrawal Cocaine use disorder severe -CBT -Psychotherapy -Supportive therapy, group therapy, individual therapy -Atarax 25 mg PO Q6 prn -Abilify 2 mg PO QDaily -Trazodone 200 mg PO QHS prn -Lexapro 20 mg PO Q Daily Prescriptions/Medication Reconciliation: ARIPiprazole [Abilify] 5 mg PO QPM #30 tab Escitalopram [Lexapro] 20 mg PO DAILY #30 tab traZODone [Desyrel] 100 mg PO HS #60 tab
--- NOTE | 2018-02-25 17:08 | PCM.PYCHPN ---
Psychiatric Progress Note - Psychiatric Progress Note Patient seen today, length of contact: 15 MIN Patient Chief Complaint: I'm feeling much better. Problems Identified/Issues Discussed: Patient seen, chart reviewed, case discussed with the staff. Issues related to illness and treatment were discussed with the patient and staff. Tolerating treatment very well. Reported compliant with treatment with no adverse affects. Patient reported feeling better with treatment. Needs more time for stabilization. Patient was calm and cooperative. Awake, alert and oriented 3. Aftercare discussed with the patient. At the time of evaluation, patient had no delusions, no auditory or visual hallucinations, no suicidal ideations or homicidal ideations. Medical Problems: None reported Diagnostic Results: Reviewed DSM 5 Symptoms Update: Improvement with treatment Medication Change: No Medical Record Reviewed: Yes Mental Status Examination - Cognitive Function Orientation: Person, Place, Situation, Time Memory: Intact Attention: WNL Concentration: WNL Association: WNL Fund of Knowledge: [facility] Decription of patient's judgement and insights: Fair - Mood Mood: Neutral - Affect Affect: Other (Appropriate) - Speech Speech: Soft - Formal Thought Process Formal Thought Process: No Impairment Psychotic Thoughts and Behaviors: None - Suicidal Ideation Suicidal Ideation: No - Homicidal Ideation Homicidal Ideation: No Goal/Treatment Plan - Goal/Treatment Plan Need for Continued Stay: Remain at risks for inpatient hospitalization, Discharge may exacerbated symptoms, Severe functional impairment Progress Toward Problem(s) and Goals/Treatment Plan: Patient/staff education. Supportive therapy. CBT for relapse prevention. [place] for opinions. Patient will go to [facility] for follow-up care after discharge from the hospital. Estimated Date of D/C: 02/27/18 - Smoking Cessation Smoking Cessation Initiated: No
[2018-02-26 06:38] VITALS: O2SAT 96
--- NOTE | 2018-02-26 18:24 | PCM.PYCHPN ---
Psychiatric Progress Note - Psychiatric Progress Note Patient seen today, length of contact: 15 MIN Patient Chief Complaint: I'm feeling much better. Problems Identified/Issues Discussed: Patient seen, chart reviewed, case discussed with the staff. Issues related to illness and treatment were discussed with the patient and staff. Tolerating treatment very well. Reported compliant with treatment with no adverse affects. Patient reported feeling better with treatment. Patient was calm and cooperative. Awake, alert and oriented 3. Aftercare discussed with the patient. At the time of evaluation, patient had no delusions, no auditory or visual hallucinations, no suicidal ideations or homicidal ideations. Medical Problems: None reported Diagnostic Results: Reviewed DSM 5 Symptoms Update: Improving with treatment Medication Change: No Medical Record Reviewed: Yes Mental Status Examination - Cognitive Function Orientation: Person, Place, Situation, Time Memory: Intact Attention: WNL Concentration: WNL Association: WNL Fund of Knowledge: [facility] Decription of patient's judgement and insights: Fair - Mood Mood: Neutral - Affect Affect: Other (Appropriate) - Speech Speech: Soft - Formal Thought Process Formal Thought Process: No Impairment Psychotic Thoughts and Behaviors: None - Suicidal Ideation Suicidal Ideation: No - Homicidal Ideation Homicidal Ideation: No Goal/Treatment Plan - Goal/Treatment Plan Need for Continued Stay: Remain at risks for inpatient hospitalization, Discharge may exacerbated symptoms, Severe functional impairment Progress Toward Problem(s) and Goals/Treatment Plan: Patient/staff education. Supportive therapy. CBT for relapse prevention. [place] for opinions. Patient will go to [facility] for follow-up care after discharge from the hospital. Estimated Date of D/C: 02/27/18 - Smoking Cessation Smoking Cessation Initiated: No
[2018-02-27 06:44] VITALS: BP 150/88; PULSE 54; RESP 20; TEMP 97.7
--- NOTE | 2018-02-27 10:49 | PCM.PYCHDC ---
Mental Status Examination - Mental Status Examination Orientation: Person, Place, Situation, Time Memory: Intact Mood: Neutral Affect: Constricted Speech: Soft Attention: WNL Concentration: WNL Association: WNL Fund of Knowledge: WNL Formal Thought Process: No Impairment Description of patient's judgement and insight: good, fair Psychotic Thoughts and Behaviors: denies any AVH Suicidal Ideation: No Current Homicidal Ideation?: No Discharge Summary - Discharge Note Reason for Hospitalization: Patient is a 57 years old, single, unemployed, homeless, male with a history of bipolar disorder for last 6 years, depression, noncompliant on treatment for last few days was admitted due to worsening of depression and suicidal ideations with plan to overdose on trazodone. Patient reported feeling depressed for last few days, noncompliant on medications. According to patient he was taking Lexapro 20 mg and trazodone 200 mg daily. Started having suicidal ideations with plan to overdose on trazodone. Patient went to ER at [facility] but was discharged. Patient went back next day with the same problems and was subsequently referred to [facility]. Denied any problem with sleep or appetite. History of 1 suicidal ideations 2 years ago by overdose on Lexapro, was admitted for 2 weeks in [facility]. Feeling hopeless and helpless. Patient has history of 15 inpatient psychiatric admissions. Last admission was 2 months ago at [facility]. Denied any manic, anxiety or psychotic features. Cocaine: Started at 21 years of age, increase gradually. Currently he was using 2-3 bags of cocaine daily. Last use 5 days ago, smoking. Opioids: Started using heroin 5 years ago, sniffing, 3 bags daily. Last use reported 5 days ago. Alcohol: Started 20 years ago, was drinking 2 cans of beer each of 24 ounces daily. Last drink 4 days ago. Does not smoke cigarettes. Patient has history of incarceration for about 3 months for not paying fines. He was born in [place], has 12 grade of education, not working for last 6 years. On disability. Never and has 5 grownup children. Currently he is homeless. His height is 5 feet 9 inches and weight is 160 pounds. Consultations:: List each consultation separately and include: 1. Reason for request. 2. Findings. 3. Follow-up Summary of Hospital Course include:: 1. Description of specific treatment plan utilized for patients during their course of treatmen. 2. Summarize the time- course for resolution of acute symptoms and/or regressed behaviors. 3. Describe issues identified and worked on during hospitalization. 4. Describe medication utilized. 5. Describe medical problems identified and treated. 6. Reassessment of suicide risk Summary of Hospital Course: During the course of his stay, patient (pt) started progressively improving and no longer remained irritable, depressed, and suicidal. His mood and anxiety were improved and he started attending groups and meetings and started socializing. Patient denied any feelings of hopelessness, helplessness, and worthlessness, denied any problem with the sleep or appetite, denied suicidal ideation or homicidal ideation. Pt denied any auditory or visual hallucinations. He denied any withdrawal symptoms. Pt was treated with medications along with supportive therapy, milieu therapy and group therapy. Some changes were made in his current medications and patient was discharged on following medications. He tolerated these medications very well and denied any side effects. - Final Diagnosis (DSM 5) Condition upon Discharge: FAIR DSM 5: Major depressive disorder recurrent severe without psychotic features. Cocaine use disorder severe. Opioid use disorder severe. Alcohol use disorder severe Disposition: HOME/ ROUTINE Follow-up Treatment Plan: Followup: He was discharged to the [facility]. Education: Pt was educated and counseled about the risks and benefits of taking and not taking medications. Pt was educated and counseled about the risks of drinking and abusing drugs. Pt was educated and counseled to go to the ER or call 911 if pt develop suicidal ideation or homicidal ideation, worsening of symptoms or severe side effects of the meds. Prescriptions/Medication Reconciliation: ARIPiprazole [Abilify] 5 mg PO QPM #30 tab Escitalopram [Lexapro] 20 mg PO DAILY #30 tab traZODone [Desyrel] 100 mg PO HS #60 tab - Smoking Cessation Smoking Cessation Medication prescribed: No - Antipsychotic Medications Pt discharged on 2 or more routine antipsychotic medications: No
== END 2018-02-27 12:15 | disposition home or self-care (01) | DRG 430 ==
LOC: C.ER 02:03 → C.5E 02:25
PROC: GZHZZZZ Group Psychotherapy (ICD-10-PCS; principal; 2018-02-17)
PROC: HZ2ZZZZ Detoxification Services for Substance Abuse Treatment (ICD-10-PCS; 2018-02-17)
PROC: HZ52ZZZ Individual Psychotherapy for Substance Abuse Treatment, Cognitive-Behavioral (ICD-10-PCS; 2018-02-17)
PROC: HZ59ZZZ Individual Psychotherapy for Substance Abuse Treatment, Supportive (ICD-10-PCS; 2018-02-17)
PROC: HZ56ZZZ Individual Psychotherapy for Substance Abuse Treatment, Psychoeducation (ICD-10-PCS; 2018-02-17)
PROC: HZ42ZZZ Group Counseling for Substance Abuse Treatment, Cognitive-Behavioral (ICD-10-PCS; 2018-02-17)
PROC: HZ46ZZZ Group Counseling for Substance Abuse Treatment, Psychoeducation (ICD-10-PCS; 2018-02-17)
PROC: GZ58ZZZ Individual Psychotherapy, Cognitive-Behavioral (ICD-10-PCS; 2018-02-17)
PROC: GZ56ZZZ Individual Psychotherapy, Supportive (ICD-10-PCS; 2018-02-17)
DX: F33.2 Major depressive disorder, recurrent severe without psychotic features (principal); F14.20 Cocaine dependence, uncomplicated; F10.230 Alcohol dependence with withdrawal, uncomplicated; F11.23 Opioid dependence with withdrawal; R45.851 Suicidal ideations; Y90.9 Presence of alcohol in blood, level not specified; Z59.0 Homelessness; Z91.14 Patient's other noncompliance with medication regimen; Z91.5 Personal history of self-harm

== ENCOUNTER 2018-07-09 16:10 | Emergency (ER) | payer MEDICAID ==
[2018-07-09 16:18] VITALS: BMI 23.1
--- NOTE | 2018-07-09 16:51 | C.PDOC ---
History Of Present Illness 58 year old male presents to ED with complaint of feeling depressed and suicidal. Patient states that he has a history of depression. He states that he has feelings of hopelessness. Patient denies homicidal ideation. Time Seen by Provider: 07/09/18 16:22 Chief Complaint (Nursing): Psychiatric Evaluation History Per: Patient History/Exam Limitations: no limitations Onset/Duration Of Symptoms: Unknown Current Symptoms Are (Timing): Still Present Suicide/Self Injury Attempted (Context): None Modifying Factor(s): None Severity: None Associated Symptoms: Suicidal Thoughts. denies: Suicidal Plan, Other (homicidal ideation) Past Medical History Reviewed: Historical Data, Nursing Documentation, Vital Signs Vital Signs: Last Vital Signs Temp 98.4 F 07/09/18 16:18 Pulse 72 07/09/18 16:18 Resp 18 07/09/18 16:18 BP 120/70 07/09/18 16:18 Pulse Ox 97 07/09/18 16:18 - Medical History PMH: Anxiety, Bipolar Disorder (HX OF BIPOLAR D/O), Depression Denies: Chronic Kidney Disease Surgical History: No Surg Hx - [facility] Procedures DETOXIFICATION SERVICES FOR SUBSTANCE ABUSE TREATMENT (02/17/18) GROUP BILLING COLLECTIONS SPECIALIST FOR SUBSTANCE ABUSE TREATMENT, PSYCHOEDUCATION (02/17/18) GROUP BILLING COLLECTIONS SPECIALIST FOR SUBSTANCE ABUSE, COGNITIVE BEHAVIORAL (02/17/18) GROUP PSYCHOTHERAPY (02/17/18) INDIV PSYCHOTHERAPY FOR SUBSTANCE ABUSE TREATMENT, SUPPORT (02/17/18) INDIV PSYCHOTHERAPY FOR SUBSTANCE ABUSE, COGNITIV BEHAVIORAL (02/17/18) INDIV PSYCHOTHERAPY FOR SUBSTANCE ABUSE, PSYCHOEDUCATION (02/17/18) INDIVIDUAL PSYCHOTHERAPY, COGNITIVE-BEHAVIORAL (02/17/18) INDIVIDUAL PSYCHOTHERAPY, SUPPORTIVE (02/17/18) MEDICATION MANAGEMENT (05/13/16) MEDS MGMT FOR SUBSTANCE ABUSE TREATMENT, OTH REPL MED (05/13/16) Family History: States: Unknown Family Hx - Social History Hx Tobacco Use: No Hx Alcohol Use: Yes (daily use of etoh) Hx Substance Use: Yes - Immunization History Hx Influenza Vaccination: Yes Hx Pneumococcal Vaccination: Yes Review Of Systems Constitutional: Negative for: Fever, Chills, Weakness Cardiovascular: Negative for: Chest Pain Respiratory: Negative for: Cough, Shortness of Breath Gastrointestinal: Negative for: Nausea, Vomiting, Abdominal Pain Neurological: Negative for: Weakness, Numbness, Dizziness Psych: Positive for: Depression, Suicidal ideation. Negative for: Other (homicidal ideation) Physical Exam - Physical Exam Appears: Well, No Acute Distress Skin: Normal Color, Warm, Dry Head: Atraumatic, Normacephalic Neck: Normal ROM, Supple Chest: Symmetrical, No Deformity Respiratory: No Accessory Muscle Use Gastrointestinal/Abdominal: Soft, No Tenderness Extremity: Bilateral: Atraumatic, Normal Color And Temperature, Normal ROM Neurological/Psych: Oriented x3, Normal Speech, Normal Cognition ED Course And Treatment - Laboratory Results Result Diagrams: 07/09/18 17:45 07/09/18 17:45 O2 Sat by Pulse Oximetry: 97 (in RA) - Radiology CXR: Interpreted by Me CXR Interpretation: Yes: No Acute Disease Medical Decision Making Medical Decision Making: Impression: 58 year old male presents to ED with depression and suicidal ideation. Plan: Labs ordered with UA and drug screen. Patient ordered to be evaluated by crisis. 6:00PM: Patient is medically cleared for psychiatric evaluation. Disposition - Disposition Disposition Time: 19:00 Condition: STABLE Forms: [employer] (Sing[place]an) - Clinical Impression Clinical Impression: Suicidal ideation, Depressed, Cocaine abuse - Scribe Statement The provider has reviewed the documentation as recorded by the Scribe (Lisa Zelaya) All medical record entries made by the Scribe were at my direction and personally dictated by me. I have reviewed the chart and agree that the record accurately reflects my personal performance of the history, physical exam, medical decision making, and the department course for this patient. I have also personally directed, reviewed, and agree with the discharge instructions and disposition. Physician Patient Turnover Patient Signed Over To: Latoya Chino (WAITING FOR PSYCHIATRY EVALUATION)
[2018-07-09 17:42] LABS: BARBITURATES, UR NEGATIVE (NEGATIVE); BENZODIAZEPINES, UR NEGATIVE (NEGATIVE); OPIATES, UR NEGATIVE (NEGATIVE); PHENCYCLIDINE, UR NEGATIVE (NEGATIVE)
[2018-07-09 17:57] LABS: BASO # 0.1 K/uL (0.0-0.2); BASO % 1.7 % (0.0-2.0); EOS # 0.1 K/uL (0.0-0.7); EOS % 1.3 % (0.0-4.0); HEMOGLOBIN 15.4 g/dL (12.0-18.0); LYMPH # 3.2 K/uL (1.0-4.3); LYMPH % 61.3 % (20.0-40.0); MEAN CORPUSCULAR HEMOGLOBIN 31.4 pg (27.0-31.0); MEAN CORPUSCULAR HGB CONC 32.7 g/dL (33.0-37.0); MEAN PLATELET VOLUME 6.8 fL (7.2-11.7); MONO # 0.4 K/uL (0.0-0.8); MONO % 6.9 % (0.0-10.0); NEUT # 1.5 K/uL (1.8-7.0); NEUT % 28.8 % (50.0-75.0); NRBC % 0.1 % (0.0-2.0); RBC 4.91 Mil/uL (4.40-5.90); RED CELL DISTRIBUTION WIDTH 14.9 % (11.5-14.5); WHITE BLOOD COUNT 5.2 K/uL (4.8-10.8)
[2018-07-09 18:03] LABS: URINE BILIRUBIN NEGATIVE (NEGATIVE); URINE BLOOD NEGATIVE (NEGATIVE); URINE CLARITY Hazy (Clear); URINE COLOR Amber (YELLOW); URINE GLUCOSE (UA) NORMAL (Normal); URINE LEUKOCYTE ESTERASE NEG Leu/uL (Negative); URINE PROTEIN 1+ mg/dL (NEGATIVE)
[2018-07-09 18:05] LABS: ALB/GLOB RATIO 1.7 (1.0-2.1); ALBUMIN 4.8 g/dL (3.5-5.0); ALT/SGPT 21 U/L (21-72); AST/SGOT 37 U/L (17-59); BLOOD UREA NITROGEN 22 mg/dL (9-20); CALCIUM 9.8 mg/dl (8.6-10.4); GFR NON-AFRICAN AMERICAN > 60
[2018-07-09 22:22] VITALS: O2SAT 98
[2018-07-10 00:12] VITALS: BP 124/80; PULSE 64; RESP 16; TEMP 97.8
--- NOTE | 2018-07-10 13:34 | RAD ---
Date of service: 07/09/2018 PROCEDURE: CHEST RADIOGRAPH, 1 VIEW HISTORY: admission COMPARISON: None available. FINDINGS: LUNGS: The lungs are well inflated and clear. PLEURA: No pneumothorax or pleural effusion. CARDIOVASCULAR: The heart is normal in size. No aortic atherosclerotic calcifications present. OSSEOUS STRUCTURES: Within normal limits for the patient's age. VISUALIZED UPPER ABDOMEN: Normal. OTHER FINDINGS: None. IMPRESSION: No active pulmonary disease.
== END 2018-07-10 00:13 | disposition short-term general hospital (02) ==
LOC: C.ER 16:10
DX: F14.10 Cocaine abuse, uncomplicated (principal); R45.851 Suicidal ideations; F32.9 Major depressive disorder, single episode, unspecified